=== PATIENT | male | born 1965 | race Caucasian/White ===

== ENCOUNTER 2017-06-19 06:55 | Day surgery (SDC) | END 2017-06-19 16:21 | disposition home or self-care (01) ==

== ENCOUNTER 2017-06-30 13:18 | Emergency (ER) | END 2017-06-30 19:34 | disposition home or self-care (01) ==

== ENCOUNTER 2018-01-15 12:02 | Inpatient (IN) | END 2018-01-17 18:00 | disposition home or self-care (01) | DRG 392 ==